=== PATIENT | female | born 1960 | race Caucasian/White ===

== ENCOUNTER → 2018-10-23 | Outpatient (CLI) | payer OTHER ==
[~2018-10-23] MED LIST: LEVE500 PO; NITR100CA PO; OXCA300 PO; RXSULTRIDS
== END | disposition home or self-care (01) ==
LOC: LAB SHORT 13:13 → PLD 13:13
DX: N60.81 Other benign mammary dysplasias of right breast (principal)
CPT/HCPCS: 88304

== ENCOUNTER 2023-01-10 08:19 | Day surgery (SDC) | payer OTHER ==
[~2023-01-10] VITALS: Ht 167.6 cm; Wt 63.9 kg
[2023-01-10] MEDS ORDERED: [UNRECOGNIZED DRUG - OTHER] (08:48)
== END 2023-01-10 10:50 | disposition home or self-care (01) ==
LOC: ORSCSDS 08:19
PROVIDERS: Surgery
PROC: 0DJD8ZZ Inspection of Lower Intestinal Tract, Via Natural or Artificial Opening Endoscopic (ICD-10-PCS; principal; 2023-01-10 09:45)
DX: Z12.11 Encounter for screening for malignant neoplasm of colon (principal); G40.909 Epilepsy, unspecified, not intractable, without status epilepticus; E78.5 Hyperlipidemia, unspecified; E03.9 Hypothyroidism, unspecified; Z87.891 Personal history of nicotine dependence; Z79.899 Other long term (current) drug therapy
CPT/HCPCS: J2704; J7120